=== PATIENT | male | born 1965 | race Caucasian/White ===

== ENCOUNTER 2019-10-18 13:41 | Emergency (ER) | payer OTHER, MEDICAID ==
[2019-10-18] MEDS ORDERED: Sodium Chloride 0.9% 10 ML Syringe FLUSH PRN (13:54)
[2019-10-18] MEDS ORDERED: cloNIDine 0.1 MG Tab PO ONE ×2 (13:57→13:59)
--- NOTE | 2019-10-18 14:24 | EDM.PDOC ---
ED HPI GENERAL MEDICAL PROBLEM - General Chief Complaint: Headache Stated Complaint: HEADACHE HIGH BP Time Seen by Provider: 10/18/19 13:45 Source of Information: Reports: Patient History Limitations: Reports: No Limitations - History of Present Illness INITIAL COMMENTS - FREE TEXT/NARRATIVE: Pt. presents to ER with complaints of headache that he has been experiencing intermittently since Jul. He states that he is currently on furosemide and metoprolol for hypertension. He states that he has not recently been ill. Denies any fever or chills. Pt. denies any numbness/tingling in extremities. No difficulty with speech or ambulation. He has been alert and oriented. Pt. states that he has headaches in varying levels of severity almost every day. At no time has he had any chest pain or shortness of breath. No nausea, vomiting, or diarrhea. No bloody stools. Denies any blurred vision, vision loss or change. Denies any problems with ambulation. Pt. is cared for at the [facility] in [place]. He states that he has a history of chronic kidney disease that he states was a result of his hypertension medications. He states that this has resolved with medication adjustment. He also has a history of elevated LFTs in the past as well. Onset: Today Onset Date: 10/18/19 Location: Reports: Head Quality: Reports: Ache Severity: Moderate Associated Symptoms: Denies: Confusion, Chest Pain, Fever/Chills, Malaise, Nausea/Vomiting, Rash, Seizure, Shortness of Breath, Syncope Stiff Neck and Headache Pain Score (Numeric/FACES): 2 - Related Data Allergies Allergy/AdvReac Type Severity Reaction Status Date / Time No Known Allergies Allergy Verified 10/18/19 13:54 ED ROS GENERAL - Review of Systems Review Of Systems: See Below Constitutional: Reports: No Symptoms HEENT: Reports: No Symptoms Respiratory: Reports: No Symptoms Cardiovascular: Reports: Blood Pressure Problem Endocrine: Reports: No Symptoms GI/Abdominal: Reports: No Symptoms : Reports: No Symptoms Musculoskeletal: Reports: No Symptoms Skin: Reports: No Symptoms Neurological: Reports: Headache. Denies: Paresthesia, Seizure, Syncope, Tingling, Tremors, Trouble Speaking, Difficulty Walking, Weakness, Change in Speech Psychiatric: Reports: No Symptoms Hematologic/Lymphatic: Reports: No Symptoms Immunologic: Reports: No Symptoms ED EXAM, GENERAL - Physical Exam Exam: See Below Exam Limited By: No Limitations General Appearance: Alert, WD/WN, No Apparent Distress Eye Exam: Bilateral Eye: EOMI, Normal Fundi, Normal Inspection, PERRL Ears: Normal External Exam, Normal Canal, Hearing Grossly Normal, Normal TMs Ear Exam: Bilateral Ear: Auricle Normal, Canal Normal, TM normal Nose: Clear Rhinorrhea Throat/Mouth: Normal Inspection, Normal Lips, Normal Teeth, Normal Gums, Normal Oropharynx, Normal Voice, No Airway Compromise Head: Atraumatic, Normocephalic Neck: Normal Inspection Respiratory/Chest: No Respiratory Distress, Lungs Clear, Normal Breath Sounds, No Accessory Muscle Use, Chest Non-Tender Cardiovascular: Normal Peripheral Pulses, Regular Rate, Rhythm, No Edema, No Gallop, No JVD, No Murmur, No Rub Peripheral Pulses: 4+: Radial (L) GI/Abdominal: Normal Bowel Sounds, Soft, Non-Tender, No Organomegaly, No Distention, No Mass, Pelvis Stable (Male) Exam: Deferred Rectal (Males) Exam: Deferred Back Exam: Normal Inspection, Full Range of Motion Extremities: Normal Inspection, Normal Range of Motion, Non-Tender, No Pedal Edema, Normal Capillary Refill Neurological: Alert, Oriented, CN II-XII Intact, Normal Cognition, Normal Gait, Normal Reflexes, No Motor/Sensory Deficits, Other (Kernig and Brudzinski signs are negative. No nuchal rigidity.) Psychiatric: Normal Affect, Normal Mood Skin Exam: Warm, Dry, Intact, Normal Color, No Rash Lymphatic: No Adenopathy EKG INTERPRETATION Rhythm: NSR [place]: Normal P-Wave: Present QRS: Normal ST-T: Normal QT: Normal Course - Vital Signs Last Recorded V/S: Last Vital Signs Temp 37.0 C 10/18/19 14:24 Pulse 76 10/18/19 15:15 Resp 16 10/18/19 14:24 BP 136/94 H 10/18/19 15:15 Pulse Ox 100 10/18/19 14:24 - Orders/Labs/Meds Orders: Active Orders 24 hr Category Date Time Status EKG Documentation Completion [RC] STAT Care 10/18/19 13:54 Active BLOOD SMEARS TO PATHOLOGIST [REF] Stat Lab 10/18/19 14:13 Received Peripheral IV Insertion Adult [OM.PC] Routine Oth 10/18/19 13:56 Ordered Labs: Laboratory Tests 10/18/19 10/18/19 10/18/19 Range/Units 14:13 14:13 14:13 WBC 3.5 L (4.0-10.0) x10^3/uL RBC 4.79 (4.5-6.0) x10^6/uL Hgb 17.0 (14.0-18.0) g/dL Hct 48.0 (40.0-52.0) % MCV 100.2 H (78.0-93.0) fL MCH 35.5 H (26.0-32.0) pg MCHC 35.4 (32.0-36.0) g/dL RDW Coeff of Alyssa 11.9 (10.0-15.0) % Plt Count 100 L (130-400) x10^3/uL Neut % (Auto) 62.9 (50.0-80.0) % Lymph % (Auto) 22.9 L (25.0-50.0) % [place] % (Auto) 11.3 H (2.0-11.0) % Eos % (Auto) 2.3 (0.0-4.0) % Baso % (Auto) 0.6 (0.2-1.2) % PT 10.5 (10.0-12.8) SEC INR 0.9 L (2.0-3.5) Sodium 140 (136-145) mmol/L Potassium 4.0 (3.5-5.1) mmol/L Chloride 103 (98-107) mmol/L Carbon Dioxide 29 (21-32) mmol/L Anion Gap 12.0 (10-20) mmol/L BUN 22 H (7-18) mg/dL Creatinine 1.0 (0.70-1.30) mg/dL Est Cr Clr Drug Dosing TNP Estimated GFR (MDRD) > 60 Glucose 103 (74-106) mg/dL Lactic Acid (0.4-2.0) mmol/L Calcium 9.0 (8.5-10.1) mg/dL Corrected Calcium 9.32 (8.5-10.1) mg/dL Phosphorus 3.2 (2.6-4.7) mg/dL Magnesium 1.9 (1.8-2.4) mg/dL Total Bilirubin 0.6 (0.2-1.0) mg/dL AST 34 (15-37) U/L ALT 40 (16-63) U/L Alkaline Phosphatase 86 (46-116) U/L Troponin I < 0.017 (<=0.056) ng/mL C-Reactive Protein 4.8 H (<=0.9) mg/dL Total Protein 7.4 (6.4-8.2) g/dL Albumin 3.6 (3.4-5.0) g/dL Globulin 3.8 Albumin/Globulin Ratio 0.95 TSH, Ultra Sensitive 1.530 (0.358-3.74) uIU/mL Monoscreen (NEGATIVE) 10/18/19 10/18/19 Range/Units 14:13 14:13 WBC (4.0-10.0) x10^3/uL RBC (4.5-6.0) x10^6/uL Hgb (14.0-18.0) g/dL Hct (40.0-52.0) % MCV (78.0-93.0) fL MCH (26.0-32.0) pg MCHC (32.0-36.0) g/dL RDW Coeff of Alyssa (10.0-15.0) % Plt Count (130-400) x10^3/uL Neut % (Auto) (50.0-80.0) % Lymph % (Auto) (25.0-50.0) % [place] % (Auto) (2.0-11.0) % Eos % (Auto) (0.0-4.0) % Baso % (Auto) (0.2-1.2) % PT (10.0-12.8) SEC INR (2.0-3.5) Sodium (136-145) mmol/L Potassium (3.5-5.1) mmol/L Chloride (98-107) mmol/L Carbon Dioxide (21-32) mmol/L Anion Gap (10-20) mmol/L BUN (7-18) mg/dL Creatinine (0.70-1.30) mg/dL Est Cr Clr Drug Dosing Estimated GFR (MDRD) Glucose (74-106) mg/dL Lactic Acid 0.8 (0.4-2.0) mmol/L Calcium (8.5-10.1) mg/dL Corrected Calcium (8.5-10.1) mg/dL Phosphorus (2.6-4.7) mg/dL Magnesium (1.8-2.4) mg/dL Total Bilirubin (0.2-1.0) mg/dL AST (15-37) U/L ALT (16-63) U/L Alkaline Phosphatase (46-116) U/L Troponin I (<=0.056) ng/mL C-Reactive Protein (<=0.9) mg/dL Total Protein (6.4-8.2) g/dL Albumin (3.4-5.0) g/dL Globulin Albumin/Globulin Ratio TSH, Ultra Sensitive (0.358-3.74) uIU/mL Monoscreen Negative (NEGATIVE) Meds: Medications Discontinued Medications Generic Name Dose Route Start Last Admin Trade Name Freq PRN Reason Stop Dose Admin Clonidine HCl 0.2 mg 10/18/19 13:57 10/18/19 14:19 Catapres PO 10/18/19 13:58 Not Given ONETIME ONE Clonidine HCl 0.1 mg 10/18/19 13:59 10/18/19 14:19 Catapres PO 10/18/19 14:00 Not Given ONETIME ONE Sodium Chloride 10 ml 10/18/19 13:54 10/18/19 14:13 Saline Flush FLUSH 10 ml ASDIRECTED PRN Administration Keep Vein Open - Radiology Interpretation Free Text/Narrative:: Mild cardiomegaly, otherwise negative for acute pathology on chest x-ray. CT of brain was negative. Departure - Departure Time of Disposition: 15:28 Disposition: Home, Self-Care 01 Clinical Impression: Hypertension - Discharge Information Instructions: Hypertension, [id number] Referrals: Laurel Mccurdy MD [Primary Care Provider] - Forms: ED Department Discharge Additional Instructions: I will call you and your pharmacy after I talk to Dr. Mccurdy. I will call you with the results of your blood test results. It will take 2 days to get those back. All of your lab results will be be forwarded to Dr. Mccurdy. Sepsis Event Note - Focused Exam Vital Signs: Vital Signs Pulse BP 10/18/19 15:15 76 136/94 H 10/18/19 15:00 76 141/86 H Date Exam was Performed: 10/19/19 Time Exam was Performed: 02:36 - Problem List Review Problem List Initiated/Reviewed/Updated: Yes - My Orders Last 24 Hours: My Active Orders 10/18/19 13:54 EKG Documentation Completion [RC] STAT 10/18/19 13:56 Peripheral IV Insertion Adult [OM.PC] Routine 10/18/19 14:13 BLOOD SMEARS TO PATHOLOGIST [REF] Stat - Assessment/Plan Last 24 Hours: My Active Orders 10/18/19 13:54 EKG Documentation Completion [RC] STAT 10/18/19 13:56 Peripheral IV Insertion Adult [OM.PC] Routine 10/18/19 14:13 BLOOD SMEARS TO PATHOLOGIST [REF] Stat Plan: I spoke briefly with Dr. Mccurdy at the [facility] regarding this patient. Will start isosorbide 10mg BID for his hypertension. He has been taken of ACEIs due to acute kidney injury and CCB due to peripheral edema, and he is on a furosemide and a beta deandre at this time. I will forward the information on his workup to her office. Peripheral blood smear is pending and was ordered due to thrombocytopenia. It sounds as though he has been drinking more (3-4 drinks every night) and this could be the cause of this. He was advised to abstain from alcohol, and strongly encouraged to stop smoking. All questions were answered.
--- NOTE | 2019-10-18 14:48 | CR ---
[id number] RAD/RAD Chest PA And Lateral EXAM: FRONTAL AND LATERAL CHEST INDICATION: HYPERTENSIVE CRISIS. COMPARISON: None. DISCUSSION: Borderline heart size without evidence of congestive heart failure. The lungs are clear. Hyperinflation suggests underlying chronic obstructive pulmonary disease. IMPRESSION: 1. Borderline heart size without evidence of congestive heart failure. No acute findings. Garry Patel MD 10/18/19 0234 Thank you for allowing us to participate in the care of your patient.
[2019-10-18 14:51] LABS: CHLORIDE,CL 103 mmol/L (98-107); SODIUM,NA 140 mmol/L (136-145)
--- NOTE | 2019-10-18 14:52 | CT ---
[id number] CT/CT Head WO IV EXAM: NONCONTRAST HEAD CT INDICATION: INTERMITTENT HEADACHE SINCE JULY. COMPARISON: None. DISCUSSION: There is mild generalized atrophy. The st and white matter are normal in attenuation. No mass effect or midline shift. No acute hemorrhage or extra-axial fluid collection. No acute territorial infarct is identified. A limited look at the orbits and paranasal sinuses is unremarkable. Chronic appearing left nasal bone fractures. IMPRESSION: 1. No acute findings. Garry Patel MD 10/18/19 1458 Thank you for allowing us to participate in the care of your patient.
== END 2019-10-18 15:28 | disposition home or self-care (01) ==
LOC: VM.ED 13:41
DX: I10 Essential (primary) hypertension (principal)
CPT/HCPCS: 36415; 70450; 71046; 80053; 83605; 83735; 84100; 84443; 84484; 85008; 85025; 85610; 86140; 86308; 93005; 93010; 99284-25; 99284-GF